=== PATIENT | female | born 1955 | race Caucasian/White ===

== ENCOUNTER 2021-12-19 06:21 | Day surgery (SDC) | payer MEDICARE, MEDICAID ==
[2021-12-16 12:01] LABS: BASOPHILS # (AUTO) 0.1 X10'3 (0-0.2); BASOPHILS % (AUTO) 0.8 % (0-1); EOSINOPHILS # (AUTO) 0.3 X10'3 (0-0.9); EOSINOPHILS % (AUTO) 3.9 % (0-6); LYMPHOCYTES % (AUTO) 29.2 % (21-51); MEAN CORPUSCULAR HEMOGLOBIN 29.7 PG (27.0-31.0); MEAN PLATELET VOLUME 9.6 FL (7.4-10.4); MONOCYTES # (AUTO) 0.6 X10'3 (0-0.9); MONOCYTES % (AUTO) 9.4 % (2-12); NEUTROPHILS # (AUTO) 3.8 X10'3 (1.8-7.7); NEUTROPHILS % (AUTO) 56.7 % (42-75); PRE OP HEMATOCRIT 43.1 % (35.0-45.0); PRE OP HEMOGLOBIN 14.2 g/dL (12.0-16.0); PRE OP PLATELET COUNT 234 X10'3 (140-440); RED BLOOD COUNT 4.79 X10'6 (4.20-5.60); RED CELL DISTRIBUTION WIDTH 14.4 % (11.5-14.5)
[2021-12-16 12:25] LABS: ALBUMIN 3.7 G/DL (3.4-5.0); ALBUMIN/GLOBULIN RATIO 1.2 (1.1-1.5); ALKALINE PHOSPHATASE 73 IU/L (46-116); BLOOD UREA NITROGEN 20 MG/DL (7-18); BUN/CREATININE RATIO 21.3 (6.6-38.0); CALCIUM 8.6 MG/DL (8.5-10.1); CHLORIDE 106 MMOL/L (99-107); CREATININE 0.94 MG/DL (0.40-0.90); PRE OP ALT 34 U/L (30-65); PRE OP ANION GAP 13 (8-16); PRE OP AST 17 U/L (10-37); PRE OP BILIRUB, TOTAL 0.3 MG/DL (0.0-1.0); PRE OP GLUCOSE 98 MG/DL (70-104); PRE OP POTASSIUM 4.7 MMOL/L (3.4-5.1); PRE OP SODIUM 145 MMOL/L (135-145); TOTAL PROTEIN 6.8 G/DL (6.4-8.2); eGFR 59 ML/MIN
[2021-12-19] VITALS (11 sets, daily range): BP systolic 109–132; BP diastolic 60–83
[~2021-12-19] VITALS: Ht 157.5 cm; Wt 73.0 kg
[~2021-12-19 06:21] MED LIST: ERGO500054 PO; ESCI-8 PO; IBUP-1985 PO; METH-797 PO; PANT40TA54 PO; ROSU40TA22 PO; TRAM50TA2 PO; cefazolin/dext.iso 2gm/50ml IV ONE; famotidine 20mg tablet PO ONE; ringers solution, lacted 1,000 ML IV SCH
[2021-12-19] MEDS ORDERED: proCHLORperazine 10 MG/2 ml inj IV PRN (08:40)
[2021-12-19] MEDS ORDERED: ringers solution, lacted 1,000 ML IV SCH (08:40)
[2021-12-19] MEDS ORDERED: meperidine/PF 25mg/ml syringe IV PRN ×3 (08:40)
[2021-12-19] MEDS ORDERED: ondansetron/PF 4mg/2ml inj IV PRN (08:40)
[2021-12-19] MEDS ORDERED: FENTANYL CITRATE/PF 50 MCG/1 ML VIAL ONE (10:43)
[2021-12-19] MEDS ORDERED: MIDAZolam 1 MG/ML 5ML VIAL ONE (10:43)
[2021-12-19] MEDS ORDERED: ROPIVAcaine 0.5% (5mg/ml) 30ml vial ONE (10:45)
[2021-12-19] MEDS ORDERED: LIDOcaine 2% (20mg/ml) 5ml vial ONE (11:15)
[2021-12-19] MEDS ORDERED: propofol inj 20 ML IV ONE (11:15)
[2021-12-19] MEDS ORDERED: dexamethasone sod phosphate 4mg/ml inj. ONE (11:37)
[2021-12-19] MEDS ORDERED: ROPIVAcaine 0.2%/PF PUMP/bolus 545 ML INTERSCALE SCH (12:05)
[2021-12-19] MEDS ORDERED: ROPIVAcaine 0.2% (10 MG/5 ML) BOLUS INJECTION INTERSCALE PRN (12:05)
[2021-12-19] MEDS ORDERED: albuterol 2.5 MG/3 ML nebule NEB ONE (12:50)
--- NOTE | 2021-12-19 12:50 | NUR ---
PT ARRIVED TO RECOVERY VIA GURNEY ACCOMPANIED BY DR. ROSENTHAL-REPORT GIVEN, PT WAKING UP, VSS, DENIES PAIN, SHOULDER WRAP/POWDER PAC AND SLING TO LEFT SHOULDER, PT ABLE TO MOVE FINGERS, CSM INTACT-PINK/WARM. PIV 20G RIGHT HAND, SCD-ON, RT RT TREATMENT ORDERED PER DR REQUEST.
[2021-12-19] MEDS ORDERED: HYDROcodone/acetaminophen 10/325mg tab PO PRN (13:10)
--- NOTE | 2021-12-19 14:00 | NUR ---
PT UP TO BATHROOM, ABLE TO WALK WITHOUT PROBLEM, VSS, DENIES PAIN, EDUCATED REGARDING IS USE-ABLE TO PULL TO 1500, EDUCATED ON ON-Q PUMP WELL, TOLERATING LIQUIDS
--- NOTE | 2021-12-19 14:50 | NUR ---
ASSISTED PT TO GET DRESSED, PT TOLERATING WELL, VSS, DENIES PAIN, NO CHANGES IN CSM-SLING AND WRAP PRESENT, DRSG-CDI. SCDS OFF, PIV D/CD, ON-Q ATTACHED AND INFO GIVEN TO PT, ALONG WITH D/C INSTRUCTIONS FOR HOME-ALL QUESTIONS ANSWERED, TAKEN VIA W/C TO TRUCK FOR TRANSPORT HOME BY
== END 2021-12-19 14:50 | disposition home or self-care (01) ==
LOC: PAS 06:21
PROVIDERS: ATTEND Orthopaedic Surgery
DX: M19.012 Primary osteoarthritis, left shoulder (principal); M75.52 Bursitis of left shoulder; G89.18 Other acute postprocedural pain; J44.9 Chronic obstructive pulmonary disease, unspecified; F32.A Depression, unspecified; G89.29 Other chronic pain; F17.210 Nicotine dependence, cigarettes, uncomplicated; Z20.822 Contact with and (suspected) exposure to COVID-19; Z88.5 Allergy status to narcotic agent; Z79.899 Other long term (current) drug therapy; Z98.51 Tubal ligation status; Z98.890 Other specified postprocedural states
CPT/HCPCS: 29824; 29826; 36415; 64416; 76942; 80053; 82948; 85025; 87635; 93005; 94640; C9803; J1100; J2250; J2704; J2795; J3010; J3490; J7120; Z7506; Z7508; Z7512; A4618; A6253; A6449; A7000

== ENCOUNTER → 2022-06-30 | Outpatient (CLI) | payer MEDICARE, MEDICAID ==
[~2022-06-30] MED LIST changes: -cefazolin/dext.iso 2gm/50ml IV ONE; -famotidine 20mg tablet PO ONE; -ringers solution, lacted 1,000 ML IV SCH
== END | disposition home or self-care (01) ==
LOC: RAD 13:09
PROVIDERS: ATTEND Physician Assistant
DX: R13.14 Dysphagia, pharyngoesophageal phase (principal); K21.9 Gastro-esophageal reflux disease without esophagitis
CPT/HCPCS: 74230